=== PATIENT | female | born 1980 | race African-American/Black ===

== ENCOUNTER 2017-12-20 06:23 | Emergency (ER) | payer OTHER, MEDICAID ==
[~2017-12-20] VITALS: Ht 144.8 cm; Wt 37.6 kg
[~2017-12-20 06:23] MED LIST: DICY20TA54 PO; HYDR-523 PO; LEVO500T2 PO; PARO10TA87 PO
[2017-12-20] MEDS ORDERED: KETOROLAC 30MG/ML VIAL IM ONE (07:30)
[2017-12-20 09:44] VITALS: BP 122/78
== END 2017-12-20 09:45 | disposition home or self-care (01) ==
LOC: ER 07:33
DX: S39.92XA Unspecified injury of lower back, initial encounter (principal); M41.9 Scoliosis, unspecified; F17.200 Nicotine dependence, unspecified, uncomplicated; W01.0XXA Fall on same level from slipping, tripping and stumbling without subsequent striking against object, initial encounter; Y93.89 Activity, other specified; Y92.89 Other specified places as the place of occurrence of the external cause; Y99.8 Other external cause status
CPT/HCPCS: 72220; 96372; 99284; J1885

== ENCOUNTER 2018-07-28 08:02 | Emergency (ER) | payer OTHER, MEDICAID ==
[~2018-07-28] VITALS: Ht 149.9 cm; Wt 59.0 kg
[2018-07-28] MEDS ORDERED: SODIUM CHLORIDE 0.9% 1,000 ML IV ONE (10:15)
[2018-07-28] MEDS ORDERED: MORPHINE SULFATE 4 MG/ML CPJ (NOT FOR IM USE) IV ONE (10:15)
[2018-07-28] MEDS ORDERED: ONDANSETRON HCL 4MG/2ML INJ IV ONE ×2 (10:15→14:15)
[2018-07-28] MEDS ORDERED: KETOROLAC 15MG/ML VIAL IV ONE (10:15)
[2018-07-28] MEDS ORDERED: ACETAMINOPHEN 500MG TABLET PO ONE (10:30)
[2018-07-28] MEDS ORDERED: MORPHINE SULFATE 10 MG/ML CPJ IV ONE (11:00)
[2018-07-28 11:04] LABS: BASOPHILS % 0.7 % (0.0-2.0); EOSINOPHILS % 0.7 % (0.0-5.0); HEMATOCRIT. 34.9 % (36.0-48.0); HEMOGLOBIN. 11.8 g/dL (12.0-16.0); LYMPHOCYTES % 13.3 % (20.0-50.0); MEAN CORPUSCULAR VOLUME 94.6 fL (81.0-99.0); MONOCYTES % 13.7 % (2.0-8.0); NEUTROPHILS % 71.6 % (40.0-76.0); PLATELET 253 x1000/uL (130-400); RED BLOOD CELL COUNT 3.69 mill/uL (4.2-5.4); RED CELL DISTRIBUTION WIDTH 15.3 % (11.6-14.6)
[2018-07-28 11:08] LABS: CHLORIDE 107 mEq/L (98-107)
[2018-07-28 12:30] LABS: CLARITY URINE CLEAR (CLEAR); COLOR URINE YELLOW (YELLOW); KETONES URINE 1+ (NEGATIVE); LEUKOCYTE ESTERASE URINE 1+ (NEGATIVE); NITRITE URINE NEGATIVE (NEGATIVE); OCCULT BLOOD URINE NEGATIVE (NEGATIVE); PROTEIN URINE TRACE (NEGATIVE); SPECIFIC GRAVITY URINE 1.017 (1.005-1.030); UROBILINOGEN URINE 0.2 E.U./dL (0.2-1.0)
[2018-07-28] MEDS ORDERED: POTASSIUM CHLORIDE 20MEQ TABLET SR PO NR (13:30)
[2018-07-28] MEDS ORDERED: FENTANYL CITRATE/PF 50MCG/ML 2ML VIAL IV ONE (14:15)
[2018-07-28] MEDS ORDERED: POTASSIUM CHLORIDE INJ 40 MEQ in DEXT 5% WATER 250 ML IV NR (14:30)
[2018-07-28] MEDS ORDERED: AMPICILLIN SOD/SULBACTAM NA 3 G in SODIUM CHLORIDE 0.9% 100 ML IV SCH (14:30)
[2018-07-28] MEDS ORDERED: IOHEXOL-300 100 ML BOTTLE ONE (15:13)
[2018-07-28] MEDS ORDERED: DEXAMETHASONE 4MG/ML 1ML VIAL IV ONE (15:15)
[2018-07-28 16:54] VITALS: BP 125/88
[2018-07-28] MEDS ORDERED: AMPICILLIN SOD/SULBACTAM NA 3 G in SODIUM CHLORIDE 0.9% 100 ML IV NR (17:30)
== END 2018-07-28 16:54 | disposition short-term general hospital (02) ==
LOC: ER 08:33
DX: J39.0 Retropharyngeal and parapharyngeal abscess (principal)
CPT/HCPCS: 36415; 70491; 80053; 81003; 85025; 87040; 87077; 87086; 87186; 96365; 96375; 96376; 99291; J0295; J1100; J1885; J2270; J2405; J3010; J3480; J7030; Q9967; J7050; J7060

== ENCOUNTER 2019-01-29 16:32 | Emergency (ER) | payer MEDICARE, MEDICAID ==
[~2019-01-29] VITALS: Ht 149.9 cm; Wt 35.5 kg
[2019-01-29 17:59] VITALS: BP 129/92
[2019-01-29] MEDS ORDERED: SODIUM CHLORIDE 0.9% 1,000 ML IV ONE (18:36)
[2019-01-29 20:12] LABS: HEMATOCRIT. 36.1 % (36.0-48.0); HEMOGLOBIN. 12.4 g/dL (12.0-16.0); MEAN CORPUSCULAR HEMOGLOBIN 32.5 pg (28.0-32.0); MEAN CORPUSCULAR VOLUME 94.4 fL (81.0-99.0); MEAN PLATELET VOLUME 8.6 fl (7.4-10.4); PLATELET 210 x1000/uL (130-400); RED BLOOD CELL COUNT 3.83 mill/uL (4.2-5.4); RED CELL DISTRIBUTION WIDTH 13.7 % (11.6-14.6)
[2019-01-29 20:14] LABS: CHLORIDE 99 mEq/L (98-107)
[2019-01-29 20:20] LABS: ETHANOL BLOOD 67 mg/dL
[2019-01-29 20:36] LABS: PLATELET ESTIMATE NORMAL
== END 2019-01-29 22:16 | disposition home or self-care (01) ==
LOC: ER 18:56
DX: F10.129 Alcohol abuse with intoxication, unspecified (principal); F12.10 Cannabis abuse, uncomplicated; F17.200 Nicotine dependence, unspecified, uncomplicated; K58.9 Irritable bowel syndrome, unspecified; M41.9 Scoliosis, unspecified; Z98.890 Other specified postprocedural states
CPT/HCPCS: 36415; 80053; 80320; 81025; 85025; 99283; J7030; G0480

== ENCOUNTER 2020-06-05 23:37 | Inpatient (IN) | payer MEDICARE, MEDICAID ==
[~2020-06-05] VITALS: Ht 144.8 cm; Wt 36.7 kg
[2020-06-06] MEDS ORDERED: ONDANSETRON HCL 4MG/2ML INJ IV STA (02:29)
[2020-06-06] MEDS ORDERED: SODIUM CHLORIDE 0.9% 1,000 ML IV ONE (02:30)
[2020-06-06] MEDS ORDERED: MORPHINE SULFATE 4 MG/ML CPJ (NOT FOR IM USE) IV ONE (02:45)
[2020-06-06] MEDS ORDERED: LORAZEPAM 2MG/ML CPJ IV ONE (02:45)
[2020-06-06] MEDS ORDERED: KETOROLAC 15MG/ML VIAL IV ONE (02:45)
[2020-06-06 03:12] LABS: PROTHROMBIN TIME 10.5 sec (9.6-11.0)
[2020-06-06 03:15] LABS: HCG SCREEN NEGATIVE
[2020-06-06 03:16] LABS: BASOPHILS % 0.2 % (0.0-2.0); HEMATOCRIT. 45.9 % (36.0-48.0); HEMOGLOBIN. 15.3 g/dL (12.0-16.0); LYMPHOCYTES % 14.4 % (20.0-50.0); MEAN CORPUSCULAR HEMOGLOBIN 29.1 pg (28.0-32.0); MEAN CORPUSCULAR VOLUME 87.1 fL (81.0-99.0); MEAN PLATELET VOLUME 8.2 fl (7.4-10.4); MONOCYTES % 5.9 % (2.0-8.0); NEUTROPHILS % 79.5 % (40.0-76.0); PLATELET 243 x1000/uL (130-400); RED BLOOD CELL COUNT 5.27 mill/uL (4.2-5.4); RED CELL DISTRIBUTION WIDTH 13.6 % (11.6-14.6)
[2020-06-06 03:17] LABS: CHLORIDE 98 mEq/L (98-107)
[2020-06-06] MEDS ORDERED: SODIUM CHLORIDE 0.9% 500 ML IV ONE (05:15)
[2020-06-06 09:55] VITALS: BP 139/94
[2020-06-06 10:43] VITALS: BP 139/94
[2020-06-06 12:00] VITALS: BP 140/89
[2020-06-06] MEDS ORDERED: PNEUMOCOCCAL 23-VAL P-SAC VAC 0.5 ML IM ONE (12:30)
[2020-06-06] MEDS ORDERED: IPRATROPIUM/ALBUTEROL 0.5-3(2.5)MG/3ML NEB NEB PRN (12:45)
[2020-06-06] MEDS ORDERED: ONDANSETRON HCL 4MG/2ML INJ IV PRN (12:45)
[2020-06-06] MEDS ORDERED: ENOXAPARIN 40MG/0.4ML SYR SUBCUT SCH (12:45)
[2020-06-06] MEDS ORDERED: ACETAMINOPHEN 325MG TABLET PO PRN (12:45)
[2020-06-06] MEDS: HYDROCODONE/ACETAMINOPHEN 5/325MG TABLET PO PRN ×3 (13:03→23:44)
[2020-06-06 13:43] LABS: BASOPHILS % 0.5 % (0.0-2.0); EOSINOPHILS % 0.6 % (0.0-5.0); HEMATOCRIT. 40.5 % (36.0-48.0); HEMOGLOBIN. 13.6 g/dL (12.0-16.0); LYMPHOCYTES % 23.7 % (20.0-50.0); MEAN CORPUSCULAR HEMOGLOBIN 29.2 pg (28.0-32.0); MEAN PLATELET VOLUME 7.9 fl (7.4-10.4); NEUTROPHILS % 70.2 % (40.0-76.0); PLATELET 222 x1000/uL (130-400); RED BLOOD CELL COUNT 4.66 mill/uL (4.2-5.4); RED CELL DISTRIBUTION WIDTH 13.6 % (11.6-14.6)
[2020-06-06] MEDS ORDERED: MVI, ADULT NO.1 10 ML, FOLIC ACID 1 MG, THIAMINE HCL 100 MG in SODIUM CHLORIDE 0.9% 1,0... IV SCH ×4 (14:30)
[2020-06-06 14:41] LABS: CHLORIDE 105 mEq/L (98-107)
[2020-06-06] MEDS: ENOXAPARIN 30MG/0.3ML SYR SUBCUT SCH (15:16)
[2020-06-06 15:58] LABS: CREATINE KINASE 292 IU/L (26-192)
[2020-06-06 16:00] VITALS: BP 121/98
[2020-06-06] MEDS ORDERED: NA PHOS,M-B/NA PHOS,DI-BA ENEMA 118ML PR PRN (17:00)
[2020-06-06 20:00] VITALS: BP 125/87
[2020-06-07] VITALS: BP 114/86
[2020-06-07 00:36] LABS: CREATINE KINASE 264 IU/L (26-192)
[2020-06-07 07:32] LABS: HEMATOCRIT. 35.4 % (36.0-48.0); HEMOGLOBIN. 11.8 g/dL (12.0-16.0); MEAN CORPUSCULAR VOLUME 87.2 fL (81.0-99.0); MEAN PLATELET VOLUME 8.2 fl (7.4-10.4); PLATELET 209 x1000/uL (130-400); RED BLOOD CELL COUNT 4.06 mill/uL (4.2-5.4); RED CELL DISTRIBUTION WIDTH 13.3 % (11.6-14.6)
[2020-06-07] MEDS: HYDROCODONE/ACETAMINOPHEN 5/325MG TABLET PO PRN ×3 (07:47→21:45)
[2020-06-07] MEDS: SODIUM CHLORIDE 0.9% 1,000 ML IV SCH ×2 (07:52→19:09)
[2020-06-07 08:00] VITALS: BP 108/77
[2020-06-07 08:15] LABS: CHLORIDE 108 mEq/L (98-107)
[2020-06-07 08:28] LABS: PHOSPHORUS 4.5 mg/dL (2.5-4.9)
[2020-06-07 08:29] LABS: LDL CHOLESTEROL 104 mg/dL (5-100)
[2020-06-07 08:30] LABS: CREATINE KINASE 177 IU/L (26-192)
[2020-06-07] MEDS ORDERED: POTASSIUM CHLORIDE 20MEQ TABLET SR PO SCH (08:45)
[2020-06-07 08:56] LABS: HDL CHOLESTEROL 52 mg/dL (40-59)
[2020-06-07] MEDS ORDERED: POTASSIUM CHLORIDE 20MEQ/PACKET PO SCH ×2 (09:00→13:00)
[2020-06-07 09:28] LABS: CLARITY URINE CLEAR (CLEAR); COLOR URINE YELLOW (YELLOW); KETONES URINE NEGATIVE (NEGATIVE); LEUKOCYTE ESTERASE URINE TRACE (NEGATIVE); NITRITE URINE NEGATIVE (NEGATIVE); OCCULT BLOOD URINE 3+ (NEGATIVE); PH URINE 5.5 (4.5-8.0); PROTEIN URINE 1+ (NEGATIVE); SPECIFIC GRAVITY URINE 1.015 (1.005-1.030); UROBILINOGEN URINE 0.2 E.U./dL (0.2-1.0)
[2020-06-07] MEDS ORDERED: POTASSIUM CHLORIDE INJ 40 MEQ in DEXT 5% WATER 250 ML IV SCH (10:00)
[2020-06-07 11:04] LABS: *AMPHETAMINES SCREEN URINE NEGATIVE (NEGATIVE); *BARBITURATES SCREEN URINE NEGATIVE (NEGATIVE); *BENZODIAZEPINES SCREEN URINE NEGATIVE (NEGATIVE); *COCAINE SCREEN URINE NEGATIVE (NEGATIVE)
[2020-06-07 11:05] LABS: METHADONE URINE SCREEN NEGATIVE (NEGATIVE); PHENCYCLIDINE URINE SCREEN NEGATIVE (NEGATIVE)
[2020-06-07 11:14] LABS: CANNABINOID URINE SCREEN PRESUMTIVE POSITIVE (NEGATIVE); OPIATES URINE SCREEN PRESUMTIVE POSITIVE (NEGATIVE)
[2020-06-07 12:00] VITALS: BP 131/84
[2020-06-07 14:47] LABS: PLATELET ESTIMATE NORMAL
[2020-06-07] MEDS ORDERED: BISACODYL 5MG TABLET PO PRN (15:00)
[2020-06-07] MEDS: ENOXAPARIN 30MG/0.3ML SYR SUBCUT SCH (15:51)
[2020-06-07 16:00] VITALS: BP 122/88
[2020-06-07] MEDS ORDERED: LORAZEPAM 2MG/ML CPJ IV PRN (17:30)
[2020-06-07] MEDS: DOCUSATE SODIUM 100MG CAPSULE PO SCH (17:30)
[2020-06-07 20:00] VITALS: BP 132/75
[2020-06-08] VITALS: BP 124/71
[2020-06-08] MEDS: HYDROCODONE/ACETAMINOPHEN 5/325MG TABLET PO PRN ×2 (02:42→10:39)
[2020-06-08] MEDS: SODIUM CHLORIDE 0.9% 1,000 ML IV SCH (02:43)
[2020-06-08 04:00] VITALS: BP 123/82
[2020-06-08 06:29] LABS: HEMATOCRIT. 32.3 % (36.0-48.0); HEMOGLOBIN. 10.7 g/dL (12.0-16.0); MEAN CORPUSCULAR HEMOGLOBIN 28.9 pg (28.0-32.0); MEAN CORPUSCULAR VOLUME 87.3 fL (81.0-99.0); MEAN PLATELET VOLUME 8.6 fl (7.4-10.4); PLATELET 200 x1000/uL (130-400); RED CELL DISTRIBUTION WIDTH 13.4 % (11.6-14.6)
[2020-06-08 06:43] LABS: CHLORIDE 116 mEq/L (98-107)
[2020-06-08 06:53] LABS: PHOSPHORUS 2.1 mg/dL (2.5-4.9)
[2020-06-08 08:00] VITALS: BP 108/74
[2020-06-08] MEDS: DOCUSATE SODIUM 100MG CAPSULE PO SCH (09:00)
[2020-06-08 09:37] LABS: PLATELET ESTIMATE NORMAL
[2020-06-08] MEDS ORDERED: PANTOPRAZOLE 40MG DR TABLET PO SCH (10:30)
[2020-06-08] MEDS ORDERED: POTASSIUM PHOS,M-BASIC-D-BASIC 30 MMOL in SODIUM CHLORIDE 0.9% 500 ML IV NR (11:00)
[2020-06-08] MEDS ORDERED: MAGNESIUM 2 G PREMIX 50 ML IV NR (11:00)
[2020-06-08 12:00] VITALS: BP 126/88
[2020-06-08] MEDS ORDERED: PROT40 MT (12:07)
[2020-06-08] MEDS ORDERED: ONDA4TAB5 MT (12:07)
[2020-06-08 16:00] VITALS: BP 128/86
== END 2020-06-08 19:04 | disposition home or self-care (01) | DRG 391 ==
LOC: ER 23:37 → 6EST 06-06 05:16 → EDBEDREQSVC 06-06 05:20 → EDBEDREQTM 06-06 05:20 → EDBEDREQ 06-06 05:20 → ENRESERV 06-06 08:20
PROVIDERS: ADMIT Internal Medicine; ATTEND Internal Medicine
DX: K58.9 Irritable bowel syndrome, unspecified (principal); N17.0 Acute kidney failure with tubular necrosis; N39.0 Urinary tract infection, site not specified; E87.1 Hypo-osmolality and hyponatremia; Z68.1 Body mass index [BMI] 19.9 or less, adult; E86.1 Hypovolemia; E86.0 Dehydration; E87.6 Hypokalemia; F32.9 Major depressive disorder, single episode, unspecified; G89.29 Other chronic pain; M41.9 Scoliosis, unspecified; R62.7 Adult failure to thrive; Z79.891 Long term (current) use of opiate analgesic; Z79.899 Other long term (current) drug therapy; R10.9 Unspecified abdominal pain
CPT/HCPCS: 36415; 71045; 74176; 80048; 80053; 80061; 80305; 80320; 81003; 82550; 83735; 84100; 84443; 84484; 84703; 85025; 86256; 86671; 93005; 97116; 97162; 99285; J1650; J1885; J2060; J2270; J2405; J3411; J3475; J3480; J3490; J7030; J7040; J7060; G0480

== ENCOUNTER 2022-12-29 08:15 | Emergency (ER) | payer BC, MEDICAID ==
[~2022-12-29] VITALS: Ht 144.8 cm; Wt 39.0 kg
[~2022-12-29 08:15] MED LIST changes: +CIPR500T5 PO; -LEVO500T2 PO; +ONDA4TAB5 MT; +PARO-162 PO; -PARO10TA87 PO; +PROT40 MT
[2022-12-29] MEDS ORDERED: ONDANSETRON 4MG ODT PO SCH (09:00)
[2022-12-29] MEDS: KETOROLAC 30MG/ML VIAL IM SCH ×2 (09:00→09:51)
[2022-12-29] MEDS ORDERED: ACETAMINOPHEN 325MG TABLET PO SCH (09:00)
[2022-12-29 09:15] LABS: CLARITY URINE CLOUDY (CLEAR); COLOR URINE ORANGE (YELLOW); KETONES URINE 3+ (NEGATIVE); LEUKOCYTE ESTERASE URINE 2+ (NEGATIVE); NITRITE URINE NEGATIVE (NEGATIVE); OCCULT BLOOD URINE 3+ (NEGATIVE); PH URINE 5.5 (4.5-8.0); PROTEIN URINE 1+ (NEGATIVE); SPECIFIC GRAVITY URINE 1.014 (1.005-1.030); UROBILINOGEN URINE 0.2 E.U./dL (0.2-1.0)
[2022-12-29 09:51] VITALS: BP 117/84
[2022-12-29] MEDS ORDERED: CEPH500C2 MT (10:38)
[2022-12-29] MEDS ORDERED: METR-167 MT (10:38)
[2022-12-29] MEDS ORDERED: METH-653 MT (10:38)
== END 2022-12-29 11:04 | disposition home or self-care (01) ==
LOC: ER 09:37
DX: N39.0 Urinary tract infection, site not specified (principal); F12.10 Cannabis abuse, uncomplicated; Z98.890 Other specified postprocedural states
CPT/HCPCS: 81003; 96372; 99283; J1885; Q0162